=== PATIENT | male | born 1950 | race Two or more races ===

== ENCOUNTER → 2022-08-19 | Outpatient (CLI) | payer OTHER ==
[~2022-08-19] VITALS: Ht 170.2 cm; Wt 106.6 kg
[~2022-08-19] MED LIST: REGADENOSON 0.4 MG/5 ML SYRG IV ONE
[2022-08-19 08:22] VITALS: BP 126/82
== END | disposition home or self-care (01) ==
LOC: XYW 07:03
PROVIDERS: ATTEND Specialist
DX: R07.9 Chest pain, unspecified (principal); R06.02 Shortness of breath
CPT/HCPCS: 78452; 93017; A9500; J2785

== ENCOUNTER 2022-09-29 18:51 | Emergency (ER) | payer OTHER ==
[~2022-09-29] VITALS: Ht 172.7 cm; Wt 104.3 kg
[2022-09-29] MEDS ORDERED: ASPirin 81 mg TAB PO ONE (19:00)
[2022-09-29 19:30] LABS: Basophils # (auto) 0.1 10 ^3/uL (0-0.2); Basophils % (auto) 0.9 % (0.0-2.0); Eosinophils # (auto) 0.1 10 ^3/uL (0-0.8); Eosinophils % (auto) 0.8 % (0.0-7.0); Hematocrit 46.2 % (41.0-53.0); Hemoglobin 15.5 g/dL (13.5-17.5); Lymphocytes # (auto) 2.1 10 ^3/uL (0.4-5.4); Lymphocytes % (auto) 28.7 % (10.0-50.0); Mean Corpuscular Hemoglobin 30.6 pg (28.0-32.0); Mean Corpuscular Hgb Conc. 33.6 g/dL (32.0-36.0); Monocytes # (auto) 0.7 10 ^3/uL (0-1.3); Monocytes % (auto) 9.5 % (0.0-12.0); Neutrophils # (auto) 4.5 10 ^3/uL (1.6-8.6); Neutrophils % (auto) 60.1 % (37.0-80.0); Nucleated Red Blood Cells % 0.4 %; Red Blood Cells 5.07 10^6/uL (4.5-5.90); Red Cell Distribution Width 14.3 % (11.8-14.3); White Blood Cell 7.4 10^3/uL (4.4-10.8)
[2022-09-29 19:41] LABS: Albumin 3.6 g/dL (3.4-5.0); Calcium 8.2 mg/dL (8.5-10.1); Magnesium 2.7 mg/dL (1.6-2.6); Potassium 4.2 mmol/L (3.5-5.1)
[2022-09-29 19:45] LABS: BUN/Creatinine Ratio 26.3 (10.0-20.0); Bilirubin, Total 0.9 mg/dL (0.2-1.0); Total Protein 6.3 g/dL (6.4-8.2)
[2022-09-29 19:49] LABS: INR 1.01 (0.9-1.15); Partial Thromboplastin Time 28.5 SEC (24.5-34.5)
[2022-09-29 21:31] VITALS: BP 113/69; PULSE 63; RESP 18; TEMP 97; O2SAT 95
== END 2022-09-29 21:33 | disposition home or self-care (01) ==
LOC: ER 18:51
DX: R07.89 Other chest pain (principal); I10 Essential (primary) hypertension; E78.5 Hyperlipidemia, unspecified; I25.2 Old myocardial infarction; Z98.890 Other specified postprocedural states
CPT/HCPCS: 36415; 71045; 80053; 83735; 83880; 84484; 85025; 85610; 85730; 93005

== ENCOUNTER 2023-02-07 07:09 | Day surgery (SDC) | payer OTHER, MEDICAID ==
[~2023-02-07] VITALS: Ht 170.2 cm; Wt 106.6 kg
[2023-02-07] VITALS (7 sets, daily range): BP systolic 110–134; BP diastolic 61–79; PULSE 54–68; RESP 12–15; O2SAT 90–96
[~2023-02-07 07:09] MED LIST changes: +BACL10TA PO; +CARV6.2551 PO; +EZET10TA22 PO; +ISOS1TAB28 PO; +LORA-622 PO; -REGADENOSON 0.4 MG/5 ML SYRG IV ONE
[2023-02-07] MEDS ORDERED: HEPARIN SODIUM (PORCINE) 5000 UNITS/ML 1ML VIAL ONE (08:21)
[2023-02-07] MEDS ORDERED: fentaNYL CITRATE 100 MCG/2 ML VL ONE (08:21)
[2023-02-07] MEDS ORDERED: ANGIOMAX 250 MG VIAL IV ONE (08:21)
[2023-02-07] MEDS ORDERED: VERAPAMIL 2.5MG/ML INJ 2ML VIAL IV ONE (08:21)
[2023-02-07] MEDS ORDERED: IODIXANOL 320MG/ML 100ML BTL IV ONE ×2 (08:22→08:50)
[2023-02-07] MEDS ORDERED: MIDAZOLAM HCL 2MG/2ML 2ml VIAL (1mg/ml) ONE (08:22)
[2023-02-07] MEDS ORDERED: SODIUM CHL 0.9% 50 ML ONE (08:22)
[2023-02-07] MEDS ORDERED: LIDOCAINE 2%HCL (LOCAL ANESTH.) INJ 20ML MDV ONE (08:32)
[2023-02-07] MEDS ORDERED: ASPirin 325 MG TAB ONE (09:33)
[2023-02-07] MEDS ORDERED: TICAGRELOR 90 MG TAB ONE (09:33)
[2023-02-08] MEDS ORDERED: PRED20TA2 PO ×3 (12:31→12:34)
[2023-02-08] MEDS ORDERED: HYDR50CA PO ×3 (12:31→12:34)
== END 2023-02-07 12:00 | disposition home or self-care (01) ==
LOC: CATH 07:09
PROVIDERS: ATTEND Internal Medicine Cardiovascular Disease
DX: I25.10 Atherosclerotic heart disease of native coronary artery without angina pectoris (principal); I10 Essential (primary) hypertension; E78.5 Hyperlipidemia, unspecified; M19.90 Unspecified osteoarthritis, unspecified site; Z87.891 Personal history of nicotine dependence; Z79.899 Other long term (current) drug therapy
CPT/HCPCS: 93458; C1725; C1769; C1874; C1887; C1894; C9600; J0583; J1644; J2250; J3010; Q9967; 99152